=== PATIENT | male | born 1985 | race Caucasian/White ===

== ENCOUNTER 2024-05-27 11:55 | Outpatient (CLI) | payer OTHER, SELFPAY ==
[2024-05-27 12:32] VITALS: BP 148/102; PULSE 89; RESP 18; TEMP 36.8; O2SAT 97
[2024-05-27] MEDS: 0.9 % SODIUM CHLORIDE 1000ML 1,000 ML 999 ML IV (12:32)
[2024-05-27 12:36] VITALS: BMI 33.2
[2024-05-27 12:45] LABS: Basophils % 0.3 % (0.1-2.0); Hematocrit 50.2 % (42.0-52.0); Hemoglobin 17.5 g/dL (14.1-18.0); Lymphocytes % 14.3 % (10-50); Mean Corpuscular HGB Conc 34.9 g/dL (31.8-35.4); Mean Corpuscular Hemoglobin 29.3 pg (27.0-31.2); Mean Corpuscular Volume 83.9 fl (80-94); Monocytes # 0.4 K/mm3 (0.1-1.0); Monocytes % 5.9 % (1.7-9.3); Neutrophils # 5.7 K/mm3 (1.8-7.8); Neutrophils % 78.9 % (37.0-80.0); Platelet Count 287 K/mm3 (142-424); Red Blood Count 5.98 M/mm3 (4.60-6.20); Red Cell Distribution Width 12.4 % (11.5-17.5); White Blood Count 7.3 K/mm3 (4.8-10.8)
[2024-05-27 12:55] VITALS: BP 158/90; PULSE 80; RESP 18; O2SAT 98
[2024-05-27 13:03] LABS: Albumin Level 4.8 g/dl (3.5-5.0); Chloride 102 mmol/L (98-107); Sodium 136 mmol/L (136-145)
[2024-05-27 13:04] LABS: Potassium 3.5 mmoL/L (3.5-5.1)
[2024-05-27 13:06] LABS: Alanine Aminotransferase 47 U/L (12-78); Albumin/Globulin Ratio 1.5 (1.1-1.8); Alkaline Phosphatase 99 U/L (38-126); Anion Gap 21.5 mEq/L (5-15); Aspartate Amino Transferase 41 U/L (17-59); Bilirubin,Total 0.9 mg/dl (0.2-1.3); Blood Urea Nitrogen 17 mg/dl (9-20); Carbon Dioxide 16 mmol/L (22.0-30.0); Creatinine Clearance Estimated 130 mL/min (50-200); Estimated Glomerular Filt Rate 67 ml/min (>60); GFR (African American) 82 ML/MIN (>60); Globulin 3.3 g/dL (1.3-3.2); Total Protein,Serum 8.1 g/dl (6.3-8.2)
[2024-05-27 13:07] LABS: Calcium 9.1 mg/dl (8.4-10.2); Glucose 155 mg/dl (74-100)
[2024-05-27 13:15] VITALS: BP 134/97; PULSE 79; RESP 16; O2SAT 98
[2024-05-27 13:35] VITALS: BP 138/92; PULSE 75; RESP 16; TEMP 36.6; O2SAT 97
== END 2024-05-27 12:35 | disposition home or self-care (01) ==
PROVIDERS: Visit Provider Nurse Practitioner Family
DX: E86.0 Dehydration (principal)
CPT/HCPCS: 80053; 85025; 96360; J7030